=== PATIENT | male | born 1965 | race Caucasian/White ===

== ENCOUNTER 2017-07-07 16:28 | Emergency (ER) | payer BC ==
[~2017-07-07] VITALS: Ht 170.2 cm; Wt 76.5 kg
[~2017-07-07 16:28] MED LIST: ADVAIR 250/501 DISK IH; ANESTACON10 ML MM; ASPIR 8181 M1 PO; ASPIRIN E.C.81 M1 PO; ATRIPLA1 TAB PO; Ascorbic Acid,Ester- PO; BACTRIM,SEPT1 TABLET PO; Bactrim,Septra DS 80 PO; Bactrim,Septra Singl PO; CEFTIN500 MG PO; Claritin,Alavart PO; Colace PO; Cortaid,Hytone 1% Cr TP; DESCOVY 200-251 EACH PO; DIFLUCAN200 MG PO; DILAUDID4 MG PO; Dulcolax PO; EPZICOM1 TABLET PO; Ecotrin PO; Epzicom PO; Folvite PO; LEVAQUIN750 MG PO; LOPRESSOR12.5 MG PO; LOPRESSOR25 MG PO; MIRALAX, GLYCOL1 PK1 PO; MOTRIN800 MG PO; NITROGLYCERIN0.4 MG PO; NITROSTAT,NITR0.4 M1 SL; NOHOMEMEDS; NORVIR100 MG PO; PANTOPRAZOLE SO40 MG PO; PEPCID20 MG PO; PLAVIX75 MG PO; PRAVACHOL40 MG PO; PREDNISONE20 MG PO; PREZCOBIX 8001 EACH PO; PROAIR RESPICL90 MCG IH; PROTONIX40 MG PO; REYATAZ150 MG PO; SENOKOT S,PE1 TABLET PO; Senokot,Sennagen PO; THERAGRAN1 TABLET PO; Tylenol Regular Stre PO; VICODIN,LORT1 TABLET PO; Vicodin,Lortab 5/500 PO; ZESTRIL,PRINIVI10 M1 PO; ZITHROMAX600 MG PO; Zithromax PO; Zocor PO; Zoloft PO
[2017-07-07 16:35] VITALS: BP 144/90
[2017-07-07] MEDS ORDERED: NAPROSYN500 MG PO (18:38)
== END 2017-07-07 19:08 | disposition home or self-care (01) ==
LOC: EME 16:28
DX: S83.91XA Sprain of unspecified site of right knee, initial encounter (principal); X58.XXXA Exposure to other specified factors, initial encounter; Y99.0 Civilian activity done for income or pay; I25.2 Old myocardial infarction; Z95.5 Presence of coronary angioplasty implant and graft; F17.200 Nicotine dependence, unspecified, uncomplicated; Z88.5 Allergy status to narcotic agent
CPT/HCPCS: 73564; 99281; 99284